=== PATIENT | male | born 1965 | race Two or more races ===

== ENCOUNTER 2021-12-15 17:03 | Emergency (ER) | payer OTHER ==
[~2021-12-15] VITALS: Ht 162.6 cm; Wt 67.6 kg
[2021-12-15 17:04] VITALS: BP 155/83
== END 2021-12-15 22:03 | disposition left against medical advice (07) ==
LOC: ER 17:03
DX: R35.0 Frequency of micturition (principal); Z53.21 Procedure and treatment not carried out due to patient leaving prior to being seen by health care provider

== ENCOUNTER 2021-12-16 09:40 | Emergency (ER) | payer OTHER ==
[~2021-12-16] VITALS: Ht 162.6 cm; Wt 66.7 kg
[2021-12-16 10:11] VITALS: BP 154/88
== END 2021-12-16 11:15 | disposition home or self-care (01) ==
LOC: ER 09:40
DX: R33.9 Retention of urine, unspecified (principal); Z88.1 Allergy status to other antibiotic agents
CPT/HCPCS: 51702; 81002

== ENCOUNTER 2024-08-21 08:02 | Inpatient (IN) | payer OTHER ==
[~2024-08-21] VITALS: Ht 162.6 cm; Wt 62.5 kg
--- NOTE | 2024-08-21 08:33 | ED.PDOC ---
General HPI Comments 59 year old male presents to the ED with a chief complaint of low back pain onset 2 days. Patient states he has chronic low back pain for the past year but noticed pain has worsen the past 2 days. Patient has a history of kidney stones and is concerned for possible kidney stones. He noticed a dark red hard stone in urine last night. Patient noticed low back pain worsens after sitting for long periods of time and has not readjust before walking. Denies trauma, injury, fever, shortness of breath, nausea, vomiting, diarrhea, constipation. No other symptoms or modifying factors present at this time. Chief Complaint: Flank Pain Time Seen by MD: 08:16 Primary Care Provider: DR. MENENDEZ Reviewed notes: Medications, Allergies Allergies: Coded Allergies: Erythromycin (Verified Allergy, Unknown, 12/15/21) Information Source: Patient Mode of Arrival: Ambulatory Severity: Moderate Timing: Days Duration: Since onset Prehospital treatment: None Onset: Spontaneous History of: Kidney stone Location: (R) Flank Penile discharge: None Modifying factors: None associated signs and symptoms: Flank Pain, Back Pain Past Medical History PAST MEDICAL HISTORY: Kidney Stones Surgical History: Denies all surgeries Family History Family History: Reviewed,noncontributory to illness Social History Smoker: Non-Smoker Alcohol: Occasionally Drugs: Denies Drug Use Lives In: Home Constitutional: denies: chills, diaphoresis, fatigue, fever, malaise, sweats, weakness, others EENTM: denies: blurred vision, double vision, ear bleeding, ear discharge, ear drainage, ear pain, ear ringing, eye pain, eye redness, hearing loss, mouth pain, mouth swelling, nasal discharge, nose bleeding, nose congestion, nose pain, photophobia, tearing, throat pain, throat swelling, voice changes, others Respiratory: denies: cough, hemoptysis, orthopnea, SOB at rest, shortness of breath, SOB with excertion, stridor, wheezing, others Cardiovascular: denies: chest pain, dizzy spells, diaphoresis, Dyspnea on exertion, edema, irregular heart beat, left arm pain, lightheadedness, palpitations, PND, syncope, others Gastrointestinal: denies: abdomen distended, abdominal pain, blood streaked bowels, constipated, diarrhea, dysphagia, difficulty swallowing, hematemesis, melena, nausea, poor appetite, poor fluid intake, rectal bleeding, rectal pain, vomiting, others Genitourinary: reports: flank pain; denies: burning, dysuria, frequency, hematuria, incontinence, penile discharge, penile sore, pain, testicle pain, testicle swelling, urgency, others Neurological: denies: dizziness, fainting, headache, left sided numbness, left sided weakness, numbness, paresthesia, pre-existing deficit, right sided n umbness, right sided weakness, seizure, speech problems, tingling, tremors, weakness, others Musculoskeletal: reports: back pain; denies: gout, joint pain, joint swelling, muscle pain, muscle stiffness, neck pain, others Integumetry: denies: bruises, change in color, change in hair/nails, dryness, laceration, lesions, lumps, rash, wounds, others Allergic/Immunocompromised: denies: Difficulty Healing, Frequent Infections, Hives, Itching, others Hematologic/Lymphatic: denies: anemia, blood clots, easy bleeding, easy bruising, swollen glands, others Endocrine: denies: excessive hunger, excessive sweating, excessive thirst, excessive urination, flushing, intolerance to cold, intolerance to heat, unexplained weight gain, unexplained weight loss, others Psychiatric: denies: anxiety, bipolar disorder, depression, hopeless, panic disorder, schizophrenia, sleepless, suicidal, others All Other Systems: Reviewed and Negative Physical Exam General Appearance: No Apparent Distress, Normal HEENT: Normal ENT Inspection, Pharynx Normal, TMs Normal Neck: Full Range of Motion, Non-Tender, Normal, Normal Inspection Respiratory: Chest Non-Tender, Lungs Clear, No Accessory Muscle Use, No Respiratory Distress, Normal Breath Sounds Cardiovascular: No Edema, No JVD, No Murmur, No Gallop, Normal Peripheral Pulses, Regular Rate/Rhythm Breast Exam: Deferred Gastrointestinal: No Organomegaly, Non Tender, No Pulsatile Mass, Normal Bowel Sounds, Soft Genitalia: Deferred Pelvic: Deferred Rectal: Deferred Extremities: No calf tenderness, Normal capillary refill, Normal inspection, Normal range of motion, Non-tender, No pedal edema Musculoskeletal : Location: Bilateral (paraspinal muscle spasms ) Apperance: Normal Neurologic: Alert, store standards associate II-XII nml as Tested, No Motor Deficits, Normal Affect, Normal Mood, No Sensory Deficits, Speech Problem (stutter ) Cerebellar Function: Normal Reflexes: Normal Skin: Dry, Normal Color, Warm Lymphatic: No Adenopathy Was a procedure done? Was a procedure done?: No Differential Diagnosis Kidney stone (Female): Pancreatitis, Pyelonephritis, Renal failure, Strain, Urinary obstruction, Urolithiasis Urinary Problem (Male): Bladder Outlet, Bladder Obstruction, Epididymitis, Prostatitis, Renal Failure, Urinary Retention, UTI X-Ray, Labs, Meds, VS Vital Signs Date Time Temp Pulse Resp B/P (MAP) Pulse Ox O2 Delivery O2 Flow Rate FiO2 08/21/24 09:42 69 16 98 Room Air* 0 21 08/21/24 09:42 97.7 69 16 156/85 (108) 98 97.7 08/21/24 08:13 98.0 88 20 142/89 (106) 98 Lab Test 08/21/24 09:48 08/21/24 08:43 08/21/24 08:00 Range/Units Troponin I High Sensitivity 3 L 3 L </=54 ng/L White Blood Count 7.4 4.4-10.8 10^3/uL Red Blood Count 4.26 L 4.5-5.90 10^6/uL Hemoglobin 12.5 L 13.5-17.5 g/dL Hematocrit 36.9 L 41.0-53.0 % Mean Corpuscular Volume 86.5 80.0-100.0 fL Mean Corpuscular Hemoglobin 29.4 28.0-32.0 pg Mean Corpuscular Hemoglobin Concent 34.0 32.0-36.0 g/dL Red Cell Distribution Width 13.6 11.8-14.3 % Platelet Count 248 140-450 10^3/uL Mean Platelet Volume 7.7 6.9-10.8 fL Neutrophils (%) (Auto) 74.7 37.0-80.0 % Lymphocytes (%) (Auto) 18.6 10.0-50.0 % Monocytes (%) (Auto) 4.5 0.0-12.0 % Eosinophils (%) (Auto) 1.8 0.0-7.0 % Basophils (%) (Auto) 0.4 0.0-2.0 % Neutrophils # (Auto) 5.5 1.6-8.6 10 ^3/uL Lymphocytes # (Auto) 1.4 0.4-5.4 10 ^3/uL Monocytes # (Auto) 0.3 0-1.3 10 ^3/uL Eosinophils # (Auto) 0.1 0-0.8 10 ^3/uL Basophils # (Auto) 0 0-0.2 10 ^3/uL Nucleated Red Blood Cells 0.0 % Prothrombin Time 10.7 9.3-11.8 sec Prothrombin Time INR 1.01 0.9-1.15 Activated Partial Thromboplast Time 28.5 24.5-34.5 SEC Sodium Level 137 136-145 mmol/L Potassium Level 4.3 3.5-5.1 mmol/L Chloride Level 104 98-107 mmol/L Carbon Dioxide Level 26 20-31 mmol/L Anion Gap 7 5-15 Blood Urea Nitrogen 27 H 9-23 mg/dL Creatinine 2.25 H 0.700-1.30 mg/dL Glomerular Filtration Rate Calc 32 >90 mL/min BUN/Creatinine Ratio 12.0 10.0-20.0 Serum Glucose 105 74-106 mg/dL Lactic Acid Level 0.9 0.4-2.0 mmol/L Calcium Level 10.1 8.7-10.4 mg/dL Magnesium Level 2.0 1.6-2.6 mg/dL Total Bilirubin 0.8 0.2-1.0 mg/dL Aspartate Amino Transferase (AST) 11 L 13-40 U/L Alanine Aminotransferase (ALT) 10 7-40 U/L Alkaline Phosphatase 56 46-116 U/L Total Protein 7.7 5.7-8.2 g/dL Albumin 4.3 3.2-4.8 g/dL Lipase 43 12-53 U/L Plasma/Serum Blood Alcohol < 3.0 <10 mg/dL Urine Color Colorless Yellow Urine Clarity Turbid H Clear Urine pH 6.5 5.0-9.0 Urine Specific [place] 1.008 1.001-1.035 Urine Protein Trace H Negative Urine Ketones Negative Negative Urine Blood 2+ H Negative /uL Urine Nitrite 2+ H Negative Urine Bilirubin Negative Negative Urine Urobilinogen Normal Negative mg/dL Urine Leukocyte Esterase 3+ Negative /uL Urine RBC 4 0 - 3 /hpf Urine Microscopic WBC 182 H 0-3 /HPF Urine Squamous Epithelial Cells Few <5 /hpf Urine Bacteria None seen None Seen /hpf Urine Glucose Normal Normal mg/dL Urine Opiates Screen Pending Urine Fentanyl Screen Pending Urine Barbiturates Screen Pending Urine Phencyclidine Screen Pending Urine Amphetamines Screen Pending Urine Benzodiazepines Screen Pending Urine Cocaine Screen Pending Urine Cannabinoids Screen Pending Current Medications Medications (Trade) Dose Ordered Sig/Praveena Route Start Time Stop Time Status Last Admin Tamsulosin HCl (Flomax) 0.4 mg ONCE ONCE PO 08/21/24 09:30 08/21/24 09:33 DC 08/21/24 09:44 [place] [id number] Ph: [phone] DIAGNOSTIC IMAGING Diagnostic Imaging Report : [id number] Signed PATIENT: JACKI ROCA ACCT: [id number] UNIT: [id number] : 1965 LOC: ER ROOM / BED: / AGE / SEX: 59 / M ADM STATUS: REG ER SERVICE 4 ORDERING PHYSICIAN: LALA JEFF MD PROCEDURE(s): ABPL - CT AB PEL WO CON-NO ORAL OR IV REASON: right flank pain ORDER NUMBER(s): [id number], ACCESSION NUMBER(s): [id number] CLINICAL INFORMATION: 59 years old, Male; right flank pain. TECHNIQUE: Axial CT images of the abdomen and pelvis were obtained without IV contrast. Coronal and sagittal reformatted images were obtained, reviewed, and stored. Evaluation of the parenchymal organs is limited without IV contrast. Evaluation of the bowel and mesentery is limited without oral contrast. All CT scans at this medical facility are performed using dose modulation techniques as appropriate to a performed exam including the following: Automated exposure control was utilized; adjustment of the MA and/or KV according to patient size; and use of iterative reconstruction technique. CTDIvol = 5.76 mGy DLP = 250.06 mGy-cm COMPARISON: None FINDINGS: Lung bases: Lung bases are clear. Liver: Grossly unremarkable in its noncontrast enhanced appearance. No abnormal density or focal lesion identified. Biliary: No calcified gallstones or biliary ductal dilatation. Spleen: Unremarkable. Pancreas: Grossly unremarkable in its noncontrast enhanced appearance. Adrenal glands: Unremarkable. No mass. Kidneys and bladder: Severe bilateral hydronephrosis. No obstructing calculi are visualized. There is mild bilateral perinephric stranding. There is moderate to marked circumferential thickening of the bladder wall moderate distention of the bladder. Aorta/Vascular: Scattered atherosclerotic calcification. No abdominal aortic aneurysm. Retroperitoneum: No mass or lymphadenopathy. Bowel/mesentery: No small bowel obstruction. No free air or free fluid. Appendix is visualized and appears unremarkable. Moderate stool throughout the colon. Scattered small colonic diverticula without adjacent inflammatory changes visualized to suggest diverticulitis. Pelvic organs: Prostate is enlarged, with impression on the bladder base. Abdominal wall: There are small bilateral fat containing indirect inguinal hernias. Bones: No acute fracture or suspicious intraosseous lesion. IMPRESSION: 1. Severe bilateral hydronephrosis and hydroureter with moderately distended bladder. Findings are suspicious for bladder outlet obstruction due to the enlarged prostate. 2. Moderate to marked bladder wall thickening is nonspecific. May be partly due to bladder outlet obstruction from the enlarged prostate. Correlate clinically for cystitis. Malignancy can not be excluded in the appropriate clinical setting. 3. Moderate stool throughout the colon and scattered colonic diverticula without adjacent inflammatory changes to suggest diverticulitis. 4. Additional findings as described above. ATED BY: JOE BRIAN DO DICTATED DATE/TIME: 08/21/24852 SIGNED BY: JOE BRIAN DO SIGNED DATE/TIME: 08/21/24852 CC: X-Ray, Labs, Meds, VS Comment This 59-year-old male presents secondary to her when he was seen by her back pain is worse in the last 2 days. He states certain positions make it better sitting positions makes the discomfort worse. His workup he was significant for what appears to be bladder outlet obstruction with bilateral hydronephrosis secondary to enlarged prostate. He will also, the patient noted to have nitrite positive urine. I am concerned the patient may have either pyelonephritis or acute prostatitis. He was given levofloxacin. Secondary to the severe nature of his symptoms, he will be admitted for further workup and management. Time of 1ST Reevaluation: 08:46 Reevaluation 1ST: Unchanged Patient Education/Counseling: Diagnosis, Treatment, Prognosis Family Education/Counseling: No Family Present Departure 1 Departure Time of Disposition: 10:58 Impression: Primary Impression: BPH (benign prostatic hyperplasia) Additional Impressions: Pyelonephritis UTI (urinary tract infection) Renal failure (ARF), acute on chronic Disposition: 09 ADMITTED INPATIENT Admit to: Med Surg Condition: Fair Critical Care Note Critical Care Time?: No Stability Stability form required: No I personally scribed for LALA JEFF MD ([email or web address]) on 08/21/24 at 08:33. Electronically submitted by Marybel Correia ([email or web address]). I personally scribed for LALA JEFF MD ([email or web address]) on 08/21/24 at 09:12. Electronically submitted by Marybel Correia ([email or web address]). LALA JEFF MD Aug 21, 2024 08:33
[2024-08-21 08:55] LABS: Urine Bacteria None Seen /hpf (None Seen)
--- NOTE | 2024-08-21 08:55 | DVH ---
CLINICAL INFORMATION: 59 years old, Male; right flank pain. TECHNIQUE: Axial CT images of the abdomen and pelvis were obtained without IV contrast. Coronal and sagittal reformatted images were obtained, reviewed, and stored. Evaluation of the parenchymal organs is limited without IV contrast. Evaluation of the bowel and mesentery is limited without oral contra st. All CT scans at this medical facility are performed using dose modulation techniques as appropria te to a performed exam including the following: Automated exposure control was utilized; adjustment o f the MA and/or KV according to patient size; and use of iterative reconstruction technique. CTDIvol = 5.76 mGy DLP = 250.06 mGy-cm COMPARISON: None FINDINGS: Lung bases: Lung bases are clear. Liver: Grossly unremarkable in its noncontrast enhanced appearance. No abnormal density or focal les ion identified. Biliary: No calcified gallstones or biliary ductal dilatation. Spleen: Unremarkable. Pancreas: Grossly unremarkable in its noncontrast enhanced appearance. Adrenal glands: Unremarkable. No mass. Kidneys and bladder: Severe bilateral hydronephrosis. No obstructing calculi are visualized. There is mild bilateral perinephric stranding. There is moderate to marked circumferential thickening of the bladder wall moderate distention of the bladder. Aorta/Vascular: Scattered atherosclerotic calcification. No abdominal aortic aneurysm. Retroperitoneum: No mass or lymphadenopathy. Bowel/mesentery: No small bowel obstruction. No free air or free fluid. Appendix is visualized and ap pears unremarkable. Moderate stool throughout the colon. Scattered small colonic diverticula without adjacent inflammatory changes visualized to suggest diverticulitis. Pelvic organs: Prostate is enlarged, with impression on the bladder base. Abdominal wall: There are small bilateral fat containing indirect inguinal hernias. Bones: No acute fracture or suspicious intraosseous lesion. IMPRESSION: 1. Severe bilateral hydronephrosis and hydroureter with moderately distended bladder. Findings are somers spicious for bladder outlet obstruction due to the enlarged prostate. 2. Moderate to marked bladder wall thickening is nonspecific. May be partly due to bladder outlet obs truction from the enlarged prostate. Correlate clinically for cystitis. Malignancy can not be exclud ed in the appropriate clinical setting. 3. Moderate stool throughout the colon and scattered colonic diverticula without adjacent inflammator y changes to suggest diverticulitis. 4. Additional findings as described above.
[2024-08-21 09:10] LABS: Basophils # (auto) 0 10 ^3/uL (0-0.2); Basophils % (auto) 0.4 % (0.0-2.0); Eosinophils # (auto) 0.1 10 ^3/uL (0-0.8); Eosinophils % (auto) 1.8 % (0.0-7.0); Hematocrit 36.9 % (41.0-53.0); Hemoglobin 12.5 g/dL (13.5-17.5); Lymphocytes # (auto) 1.4 10 ^3/uL (0.4-5.4); Lymphocytes % (auto) 18.6 % (10.0-50.0); Mean Corpuscular Hemoglobin 29.4 pg (28.0-32.0); Mean Corpuscular Volume 86.5 fL (80.0-100.0); Monocytes # (auto) 0.3 10 ^3/uL (0-1.3); Monocytes % (auto) 4.5 % (0.0-12.0); Neutrophils # (auto) 5.5 10 ^3/uL (1.6-8.6); Neutrophils % (auto) 74.7 % (37.0-80.0); Platelet Count (auto) 248 10^3/uL (140-450); Red Blood Cells 4.26 10^6/uL (4.5-5.90); Red Cell Distribution Width 13.6 % (11.8-14.3); White Blood Cell 7.4 10^3/uL (4.4-10.8)
[2024-08-21 09:24] LABS: Alanine Aminotransferase 10 U/L (7-40); Albumin 4.3 g/dL (3.2-4.8); Alkaline Phosphatase 56 U/L (46-116); Anion Gap 7 (5-15); Bilirubin, Total 0.8 mg/dL (0.2-1.0); Calcium 10.1 mg/dL (8.7-10.4); Carbon Dioxide 26 mmol/L (20-31); Chloride 104 mmol/L (98-107); Glucose 105 mg/dL (74-106); Lipase 43 U/L (12-53); Potassium 4.3 mmol/L (3.5-5.1); Sodium 137 mmol/L (136-145); Total Protein 7.7 g/dL (5.7-8.2)
[2024-08-21 09:25] LABS: INR 1.01 (0.9-1.15); Partial Thromboplastin Time 28.5 SEC (24.5-34.5); Prothrombin Time 10.7 sec (9.3-11.8)
[2024-08-21 09:27] LABS: Urine Blood 2+ /uL (Negative); Urine Clarity Turbid (Clear); Urine Color Colorless (Yellow); Urine Protein, UAD TRACE (Negative); Urine Specific Gravity 1.008 (1.001-1.035); Urine Squamous Epithelial Cell FEW /hpf (<5); Urine Urobilinogen Normal (Negative); Urine WBC 182 /HPF (0-3); Urine pH 6.5 (5.0-9.0)
[2024-08-21 09:29] LABS: Aspartate Aminotransferase 11 U/L (13-40); Blood Urea Nitrogen 27 mg/dL (9-23)
[2024-08-21 09:42] VITALS: PULSE 69; RESP 16; O2SAT 98
[2024-08-21] MEDS: TAMSULOSIN HYDROCHLORIDE 0.4 MG CAP PO ONE (09:44)
[2024-08-21 09:52] LABS: Blood Alcohol < 3.0 mg/dL (<10)
[2024-08-21] MEDS ORDERED: levoFLOXacin 750MG 150 ML IV ONE (11:00)
[2024-08-21 11:10] LABS: Amphetamine Screen, Urine Neg (NEGATIVE); Barbiturate Scree,Urine Neg (NEGATIVE); Benzodiazephine Screen, Urine Neg (NEGATIVE); Cannabinoid Screen, Urine Neg (NEGATIVE); Cocaine Screen, Urine Neg (NEGATIVE); Opiate Scree,Urine Neg (NEGATIVE); Phencyclidine Screen, Urine Neg (NEGATIVE)
[2024-08-21] MEDS: PIPERACILLIN-TAZOB 3.375GM 100 ML IV ONE (13:49)
[2024-08-21] MEDS ORDERED: ONDANSETRON HCL 4 MG/2 ML VIAL IV PRN (14:30)
[2024-08-21] MEDS ORDERED: HYDROmorphone HCL 2 MG/ML VL/or syr IV PRN (14:30)
[2024-08-21] MEDS ORDERED: HYDROcodone-ACET 5/325MG TAB PO PRN (14:30)
[2024-08-21] MEDS ORDERED: ACETAMINOPHEN 325 MG TAB PO PRN (14:30)
--- NOTE | 2024-08-21 14:31 | DVHHP2 ---
Admitting Diagnosis: flank pain History of Present Illness 59 year old male presents to the ED with a chief complaint of low back pain onset 2 days. Patient states he has chronic low back pain for the past year but noticed pain has worsen the past 2 days. Patient has a history of kidney stones and is concerned for possible kidney stones. He noticed a dark red hard stone in urine last night. Patient noticed low back pain worsens after sitting for long periods of time and has not readjust before walking. Denies trauma, injury, fever, shortness of breath, nausea, vomiting, diarrhea, constipation. No other symptoms or modifying factors present at this time. PAST MEDICAL HISTORY: Kidney Stones Surgical History: Denies all surgeries Family History Family History: Reviewed,noncontributory to illness Social History Smoker: Non-Smoker Alcohol: Occasionally Drugs: Denies Drug Use Lives In: Home Allergies: Coded Allergies: Erythromycin (Verified Allergy, Unknown, 12/15/21) Current Medications Current Medications Medications (Trade) Dose Ordered Sig/Praveena Route PRN Reason Start Time Stop Time Status Last Admin Ceftriaxone Sodium 50 ml @ 100 mls/hr DAILY IV 08/22/24 10:00 UNV Sodium Chloride (Saline Lock Ns) 10 ml Q8HR IV 08/21/24 22:00 UNV Acetaminophen (Tylenol Tablet) 650 mg Q6HP PRN PO PAIN SCALE 1-3 OR TEMP>100.4 08/21/24 14:30 UNV Acetaminophen/ Hydrocodone Bitart ([place] 5/325MG Tab) 1 tab Q4HP PRN PO MODERATE PAIN (4-6 PAIN SCALE) 08/21/24 14:30 UNV Hydromorphone HCl (Dilaudid Injection) 0.5 mg Q4HP PRN IV SEVERE PAIN (7-10 PAIN SCALE) 08/21/24 14:30 UNV Ondansetron HCl (Zofran) 4 mg Q4HP PRN IV NAUSEA / VOMITING 08/21/24 14:30 UNV Vital Signs Vital Signs Date Time Temp Pulse Resp B/P (MAP) Pulse Ox O2 Delivery O2 Flow Rate FiO2 08/21/24 09:42 69 16 98 Room Air* 0 21 08/21/24 09:42 97.7 156/85 (108) 97.7 Physical Exam 59 years old male, well nourished well developed. No apparent distress HEENT-atraumatic normocephalic Heart-regular rate and rhythm Lungs clear to auscultate bilaterally. Abdomen soft nontender nondistended Musculoskeletal-for edema, no cyanosis. Negative CVA tenderness Neuro-AO x3, no focal deficits Results Labs Test 08/21/24 09:48 08/21/24 08:43 08/21/24 08:00 Range/Units Troponin I High Sensitivity 3 L </=54 ng/L White Blood Count 7.4 4.4-10.8 10^3/uL Red Blood Count 4.26 L 4.5-5.90 10^6/uL Hemoglobin 12.5 L 13.5-17.5 g/dL Hematocrit 36.9 L 41.0-53.0 % Mean Corpuscular Volume 86.5 80.0-100.0 fL Mean Corpuscular Hemoglobin 29.4 28.0-32.0 pg Mean Corpuscular Hemoglobin Concent 34.0 32.0-36.0 g/dL Red Cell Distribution Width 13.6 11.8-14.3 % Platelet Count 248 140-450 10^3/uL Mean Platelet Volume 7.7 6.9-10.8 fL Neutrophils (%) (Auto) 74.7 37.0-80.0 % Lymphocytes (%) (Auto) 18.6 10.0-50.0 % Monocytes (%) (Auto) 4.5 0.0-12.0 % Eosinophils (%) (Auto) 1.8 0.0-7.0 % Basophils (%) (Auto) 0.4 0.0-2.0 % Neutrophils # (Auto) 5.5 1.6-8.6 10 ^3/uL Lymphocytes # (Auto) 1.4 0.4-5.4 10 ^3/uL Monocytes # (Auto) 0.3 0-1.3 10 ^3/uL Eosinophils # (Auto) 0.1 0-0.8 10 ^3/uL Basophils # (Auto) 0 0-0.2 10 ^3/uL Nucleated Red Blood Cells 0.0 % Prothrombin Time 10.7 9.3-11.8 sec Prothrombin Time INR 1.01 0.9-1.15 Activated Partial Thromboplast Time 28.5 24.5-34.5 SEC Sodium Level 137 136-145 mmol/L Potassium Level 4.3 3.5-5.1 mmol/L Chloride Level 104 98-107 mmol/L Carbon Dioxide Level 26 20-31 mmol/L Anion Gap 7 5-15 Blood Urea Nitrogen 27 H 9-23 mg/dL Creatinine 2.25 H 0.700-1.30 mg/dL Glomerular Filtration Rate Calc 32 >90 mL/min BUN/Creatinine Ratio 12.0 10.0-20.0 Serum Glucose 105 74-106 mg/dL Lactic Acid Level 0.9 0.4-2.0 mmol/L Calcium Level 10.1 8.7-10.4 mg/dL Magnesium Level 2.0 1.6-2.6 mg/dL Total Bilirubin 0.8 0.2-1.0 mg/dL Aspartate Amino Transferase (AST) 11 L 13-40 U/L Alanine Aminotransferase (ALT) 10 7-40 U/L Alkaline Phosphatase 56 46-116 U/L Total Protein 7.7 5.7-8.2 g/dL Albumin 4.3 3.2-4.8 g/dL Lipase 43 12-53 U/L Plasma/Serum Blood Alcohol < 3.0 <10 mg/dL Urine Color Colorless Yellow Urine Clarity Turbid H Clear Urine pH 6.5 5.0-9.0 Urine Specific [place] 1.008 1.001-1.035 Urine Protein Trace H Negative Urine Ketones Negative Negative Urine Blood 2+ H Negative /uL Urine Nitrite 2+ H Negative Urine Bilirubin Negative Negative Urine Urobilinogen Normal Negative mg/dL Urine Leukocyte Esterase 3+ Negative /uL Urine RBC 4 0 - 3 /hpf Urine Microscopic WBC 182 H 0-3 /HPF Urine Squamous Epithelial Cells Few <5 /hpf Urine Bacteria None seen None Seen /hpf Urine Glucose Normal Normal mg/dL Urine Opiates Screen Neg NEGATIVE Urine Fentanyl Screen Neg NEGATIVE Urine Barbiturates Screen Neg NEGATIVE Urine Phencyclidine Screen Neg NEGATIVE Urine Amphetamines Screen Neg NEGATIVE Urine Benzodiazepines Screen Neg NEGATIVE Urine Cocaine Screen Neg NEGATIVE Urine Cannabinoids Screen Neg NEGATIVE Primary Diagnosis Cystitis MAKSIM on CKD Bilateral hydronephrosis due to bladder outlet obstruction likely due to BPH Plan Abdominal pelvis shows bilateral hydronephrosis and distended bladder likely due to BPH + UA Ceftriaxone 1g daily. f/u with bcx Tamsulosin Insert [place]den negative cva tendernss. suspect possible stone or passed stone. IV fluids when 150 LR for possible kidney stone Urology consult for acute urinary retention Nephrology consult for MAKSIM on CKD Check urine sodium, urine creatinine Monitoring urine output full code renal diet. npo midnight for possible procedure ppi SCD Plan discussed with: Patient Problems List: (1) Acute cystitis (2) UTI (urinary tract infection) Status: Acute (3) BPH (benign prostatic hyperplasia) Status: Acute Date of Service: Aug 21, 2024 Billing Provider: JACKI CARLOS MD Common Visit Codes: [id number] INP/OBS CARE (HIGH) JACKI CARLOS MD Aug 21, 2024 14:31
[2024-08-21] MEDS: LACTATED RINGER'S 1,000 ML IV ONE (15:28)
--- NOTE | 2024-08-21 18:50 | DVHINCON2 ---
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 Patient denies any other notable medical conditions. Patient presents to the hospital because over the last several days he reports that he has had flank and side pain and abdominal pain after drinking cranberry juice and lemon. He reports that his urinary output has been decreased over the last few days. Upon evaluation in the hospital he was noted to have bilateral hydronephrosis a Hayden catheter was placed. He states that his baseline GFR is in the mid 30s Allergies: Coded Allergies: Erythromycin (Verified Allergy, Unknown, 12/15/21) Current Medications Current Medications Medications (Trade) Dose Ordered Sig/Praveena Route PRN Reason Start Time Stop Time Status Last Admin Ceftriaxone Sodium 50 ml @ 100 mls/hr DAILY IV 08/22/24 10:00 Sodium Chloride (Saline Lock Ns) 10 ml Q8HR IV 08/21/24 22:00 Acetaminophen (Tylenol Tablet) 650 mg Q6HP PRN PO PAIN SCALE 1-3 OR TEMP>100.4 08/21/24 14:30 Acetaminophen/ Hydrocodone Bitart ([place] 5/325MG Tab) 1 tab Q4HP PRN PO MODERATE PAIN (4-6 PAIN SCALE) 08/21/24 14:30 Hydromorphone HCl (Dilaudid Injection) 0.5 mg Q4HP PRN IV SEVERE PAIN (7-10 PAIN SCALE) 08/21/24 14:30 Ondansetron HCl (Zofran) 4 mg Q4HP PRN IV NAUSEA / VOMITING 08/21/24 14:30 Tamsulosin HCl (Flomax) 0.4 mg DAILY PO 08/22/24 10:00 Review of Systems Abdominal pain H&P Exam Vital Signs/I&O Vital Sign Date Time Temp Pulse Resp B/P (MAP) Pulse Ox O2 Delivery O2 Flow Rate FiO2 08/21/24 17:16 72 10 116/75 (89) 96 08/21/24 09:42 Room Air* 0 21 08/21/24 09:42 97.7 97.7 Physical Exam Middle-aged white male thin-appearing Nonacute distress Abdomen is soft No pitting edema Hayden catheter Regular rate and rhythm Labs/Diagnostic Data Labs/Diagnostic Data Laboratory Tests Test 08/21/24 09:48 08/21/24 08:43 08/21/24 08:00 Range/Units Troponin I High Sensitivity 3 L 3 L </=54 ng/L White Blood Count 7.4 4.4-10.8 10^3/uL Red Blood Count 4.26 L 4.5-5.90 10^6/uL Hemoglobin 12.5 L 13.5-17.5 g/dL Hematocrit 36.9 L 41.0-53.0 % Mean Corpuscular Volume 86.5 80.0-100.0 fL Mean Corpuscular Hemoglobin 29.4 28.0-32.0 pg Mean Corpuscular Hemoglobin Concent 34.0 32.0-36.0 g/dL Red Cell Distribution Width 13.6 11.8-14.3 % Platelet Count 248 140-450 10^3/uL Mean Platelet Volume 7.7 6.9-10.8 fL Neutrophils (%) (Auto) 74.7 37.0-80.0 % Lymphocytes (%) (Auto) 18.6 10.0-50.0 % Monocytes (%) (Auto) 4.5 0.0-12.0 % Eosinophils (%) (Auto) 1.8 0.0-7.0 % Basophils (%) (Auto) 0.4 0.0-2.0 % Neutrophils # (Auto) 5.5 1.6-8.6 10 ^3/uL Lymphocytes # (Auto) 1.4 0.4-5.4 10 ^3/uL Monocytes # (Auto) 0.3 0-1.3 10 ^3/uL Eosinophils # (Auto) 0.1 0-0.8 10 ^3/uL Basophils # (Auto) 0 0-0.2 10 ^3/uL Nucleated Red Blood Cells 0.0 % Prothrombin Time 10.7 9.3-11.8 sec Prothrombin Time INR 1.01 0.9-1.15 Activated Partial Thromboplast Time 28.5 24.5-34.5 SEC Sodium Level 137 136-145 mmol/L Potassium Level 4.3 3.5-5.1 mmol/L Chloride Level 104 98-107 mmol/L Carbon Dioxide Level 26 20-31 mmol/L Anion Gap 7 5-15 Blood Urea Nitrogen 27 H 9-23 mg/dL Creatinine 2.25 H 0.700-1.30 mg/dL Glomerular Filtration Rate Calc 32 >90 mL/min BUN/Creatinine Ratio 12.0 10.0-20.0 Serum Glucose 105 74-106 mg/dL Lactic Acid Level 0.9 0.4-2.0 mmol/L Calcium Level 10.1 8.7-10.4 mg/dL Magnesium Level 2.0 1.6-2.6 mg/dL Total Bilirubin 0.8 0.2-1.0 mg/dL Aspartate Amino Transferase (AST) 11 L 13-40 U/L Alanine Aminotransferase (ALT) 10 7-40 U/L Alkaline Phosphatase 56 46-116 U/L Total Protein 7.7 5.7-8.2 g/dL Albumin 4.3 3.2-4.8 g/dL Lipase 43 12-53 U/L Plasma/Serum Blood Alcohol < 3.0 <10 mg/dL Urine Color Colorless Yellow Urine Clarity Turbid H Clear Urine pH 6.5 5.0-9.0 Urine Specific [place] 1.008 1.001-1.035 Urine Protein Trace H Negative Urine Ketones Negative Negative Urine Blood 2+ H Negative /uL Urine Nitrite 2+ H Negative Urine Bilirubin Negative Negative Urine Urobilinogen Normal Negative mg/dL Urine Leukocyte Esterase 3+ Negative /uL Urine RBC 4 0 - 3 /hpf Urine Microscopic WBC 182 H 0-3 /HPF Urine Squamous Epithelial Cells Few <5 /hpf Urine Bacteria None seen None Seen /hpf Urine Glucose Normal Normal mg/dL Urine Opiates Screen Neg NEGATIVE Urine Fentanyl Screen Neg NEGATIVE Urine Barbiturates Screen Neg NEGATIVE Urine Phencyclidine Screen Neg NEGATIVE Urine Amphetamines Screen Neg NEGATIVE Urine Benzodiazepines Screen Neg NEGATIVE Urine Cocaine Screen Neg NEGATIVE Urine Cannabinoids Screen Neg NEGATIVE Assessment Acute kidney injury likely in the setting of urinary tract infection with superimposed urinary obstruction Chronic kidney disease stage 3 Urinary tract infection Agree with Hayden catheter placement Strict Is&Os Patient is self caths at home upon discharge patient can remove Hayden. Patient should follow-up with [place]. IV antibiotics recommend coverage for nitrite positive bacteria Obtain urinary culture Plan discussed with: Patient CLAUDETTE JOHNSON MD Aug 21, 2024 18:50
[2024-08-21] MEDS: LACTATED RINGER'S 1,000 ML IV SCH (19:30)
[2024-08-21] MEDS: SODIUM CHLOR 0.9% PF (SALINE LOCK) 10ML VIAL/SYR IV SCH (22:00)
[2024-08-22] VITALS (8 sets, daily range): BP systolic 110–131; BP diastolic 71–87; PULSE 63–91; RESP 16–20; TEMP 97.9–98.5; O2SAT 93–99
--- NOTE | 2024-08-22 01:11 | DVH ---
RENAL ULTRASOUND CLINICAL HISTORY: b/l hydronephrosis TECHNIQUE: Multiple grayscale ultrasound images were obtained through the kidneys and urinary bladder . COMPARISON: None FINDINGS: Right kidney: Measures 10.6 cm. Moderate hydronephrosis. Left kidney: Measures 10.7 cm. Moderate hydronephrosis. Urinary bladder: Thickened urinary bladder decompressed about a Hayden catheter. IMPRESSION: 1. Moderate bilateral hydronephrosis. 2. Marked bladder wall thickening decompressed Hepatic Hayden catheter. this could be due to chronic b ladder outlet obstruction in the setting of prostatomegaly seen on recent CT abdomen and pelvis. Cor relate with urinalysis if there is clinical concern for cystitis, if not already performed.
[2024-08-22] MEDS ORDERED: TAMS0.4C39 PO (03:15)
[2024-08-22 07:44] LABS: Basophils # (auto) 0 10 ^3/uL (0-0.2); Basophils % (auto) 0.4 % (0.0-2.0); Eosinophils # (auto) 0.1 10 ^3/uL (0-0.8); Eosinophils % (auto) 1.3 % (0.0-7.0); Hematocrit 33.4 % (41.0-53.0); Hemoglobin 11.5 g/dL (13.5-17.5); Lymphocytes # (auto) 1.4 10 ^3/uL (0.4-5.4); Lymphocytes % (auto) 20.2 % (10.0-50.0); Mean Corpuscular Hemoglobin 29.7 pg (28.0-32.0); Mean Corpuscular Hgb Conc. 34.5 g/dL (32.0-36.0); Mean Corpuscular Volume 86.2 fL (80.0-100.0); Monocytes # (auto) 0.4 10 ^3/uL (0-1.3); Monocytes % (auto) 5.4 % (0.0-12.0); Neutrophils % (auto) 72.7 % (37.0-80.0); Platelet Count (auto) 251 10^3/uL (140-450); Red Blood Cells 3.88 10^6/uL (4.5-5.90); Red Cell Distribution Width 13.4 % (11.8-14.3); White Blood Cell 6.8 10^3/uL (4.4-10.8)
[2024-08-22 08:09] LABS: Alkaline Phosphatase 52 U/L (46-116); Anion Gap 7 (5-15); Calcium 9.7 mg/dL (8.7-10.4); Carbon Dioxide 26 mmol/L (20-31); Chloride 105 mmol/L (98-107); Glucose 86 mg/dL (74-106); Potassium 4.1 mmol/L (3.5-5.1); Sodium 138 mmol/L (136-145)
[2024-08-22 08:10] LABS: Total Protein 6.9 g/dL (5.7-8.2)
[2024-08-22 08:18] LABS: Alanine Aminotransferase < 9 U/L (7-40); Aspartate Aminotransferase 11 U/L (13-40); Blood Urea Nitrogen 25 mg/dL (9-23)
[2024-08-22 09:04] LABS: Hepatitis B Surface Antigen Negative (Negative); Hepatitis C Antibody Negative (Negative)
[2024-08-22] MEDS: TAMSULOSIN HYDROCHLORIDE 0.4 MG CAP PO SCH (09:21)
[2024-08-22] MEDS: cefTRIAXone 1GM/50ML D5W 50 ML IV SCH (09:22)
--- NOTE | 2024-08-22 11:55 | DVHPN2 ---
Reviewed: Care Plan, H&P, Labs, Medications, Previous Orders, Radiology Changes from previous H/P or p: No Changes Objective Vitals Vital Signs Date Time Temp Pulse Resp B/P (MAP) Pulse Ox O2 Delivery O2 Flow Rate FiO2 08/22/24 08:54 97.9 79 18 131/87 (102) 96 97.9 08/22/24 02:17 Room Air* 0 21 Intake/Output Intake and Output 08/22/24 07:00 Intake Total 725 ml Output Total 1700 ml Balance -975 ml Intake Oral 200 ml IV Total 525 ml Output Urine Total 1700 ml Medications Current Medications Medications Dose Ordered Sig/Praveena Route Start Time Stop Time Status Last Admin Dose Admin Ceftriaxone Sodium 50 ml @ 100 mls/hr DAILY IV 08/22/24 10:00 08/22/24 09:22 100 MLS/HR Sodium Chloride 10 ml Q8HR IV 08/21/24 22:00 08/22/24 06:00 10 ML Acetaminophen 650 mg Q6HP PRN PO 08/21/24 14:30 Acetaminophen/ Hydrocodone Bitart 1 tab Q4HP PRN PO 08/21/24 14:30 Hydromorphone HCl 0.5 mg Q4HP PRN IV 08/21/24 14:30 Ondansetron HCl 4 mg Q4HP PRN IV 08/21/24 14:30 Tamsulosin HCl 0.4 mg DAILY PO 08/22/24 10:00 08/22/24 09:21 0.4 MG Lactated Ringer's 1,000 ml @ 75 mls/hr [id number] IV 08/21/24 18:45 08/22/24 08:05 75 MLS/HR Laboratory Results Laboratory Tests 08/22/24 05:55 Chemistry Test 08/22/24 05:55 Albumin 4.0 g/dL (3.2-4.8) Calcium Level 9.7 mg/dL (8.7-10.4) Total Protein 6.9 g/dL (5.7-8.2) LFT Test 08/22/24 05:55 Alanine Aminotransferase (ALT) < 9 U/L (7-40) Alkaline Phosphatase 52 U/L (46-116) Aspartate Amino Transferase (AST) 11 U/L (13-40) L Total Bilirubin 1.0 mg/dL (0.2-1.0) Urinalysis Test 08/21/24 08:00 Urine Color Colorless (Yellow) Urine Clarity Turbid (Clear) H Urine pH 6.5 (5.0-9.0) Urine Specific [place] 1.008 (1.001-1.035) Urine Protein Trace (Negative) H Urine Ketones Negative (Negative) Urine Blood 2+ /uL (Negative) H Urine Nitrite 2+ (Negative) H Urine Bilirubin Negative (Negative) Urine Urobilinogen Normal mg/dL (Negative) Urine Leukocyte Esterase 3+ /uL (Negative) Urine RBC 4 /hpf (0 - 3) Urine Microscopic WBC 182 /HPF (0-3) H Urine Squamous Epithelial Cells Few /hpf (<5) Urine Bacteria None seen /hpf (None Seen) Urine Creatinine Pending Urine Sodium Pending Urine Glucose Normal mg/dL (Normal) Labs and/or images reviewed: Labs reviewed by me, Image(s) reviewed by me Assessment/Plan Assessment/Plan Acute obstructive uropathy: Hayden consult for Urology Dr. Waite Bilateral hydroureteronephrosis secondary to enlarged prostate Enlarged prostate Sepsis secondary to urinary tract infection: Blood cultures urine cultures Rocephin MAKSIM: Consult by Dr Ayala appreciated CKD 3 Patient is thinking of leaving AMA Plan discussed with: Patient My Orders Orders - JUSTINO RAMIREZ MD Procedure Category Date Status Time Communication Order ORDERS 08/22/24 Transmitted 11:46 Date of Service: Aug 22, 2024 Billing Provider: JUSTINO RAMIREZ MD Common Visit Codes: [id number] INP/OBS CARE(HIGH) JUSTINO RAMIREZ MD Aug 22, 2024 11:55
--- NOTE | 2024-08-22 11:57 | DVHPN2 ---
Progress Note Date Seen: Aug 22, 2024 Medical Necessity Reason Pt with a Central, PICC or Fol: Yes The following are medically ne: Garcia Catheter Reason for garcia catheter: Bladder Retention/Obstruc Subjective Patient reports: Feels better Objective vital signs Vital Sign Date Time Temp Pulse Resp B/P (MAP) Pulse Ox O2 Delivery O2 Flow Rate FiO2 08/22/24 08:54 97.9 79 18 131/87 (102) 96 97.9 08/22/24 02:17 Room Air* 0 21 Total Intake and Output 08/21/24 08/21/24 08/22/24 15:00 23:00 07:00 Intake Total 225 ml 500 ml Output Total 950 ml 750 ml Balance -725 ml -250 ml medications Current Medications Medications Dose Ordered Sig/Praveena Route Start Time Stop Time Status Last Admin Dose Admin Ceftriaxone Sodium 50 ml @ 100 mls/hr DAILY IV 08/22/24 10:00 08/22/24 09:22 100 MLS/HR Sodium Chloride 10 ml Q8HR IV 08/21/24 22:00 08/22/24 06:00 10 ML Acetaminophen 650 mg Q6HP PRN PO 08/21/24 14:30 Acetaminophen/ Hydrocodone Bitart 1 tab Q4HP PRN PO 08/21/24 14:30 Hydromorphone HCl 0.5 mg Q4HP PRN IV 08/21/24 14:30 Ondansetron HCl 4 mg Q4HP PRN IV 08/21/24 14:30 Tamsulosin HCl 0.4 mg DAILY PO 08/22/24 10:00 08/22/24 09:21 0.4 MG Lactated Ringer's 1,000 ml @ 75 mls/hr [id number] IV 08/21/24 18:45 08/22/24 08:05 75 MLS/HR Examination: GENERAL:Normal, CVS:Normal, :Abnormal laboratory and microbiology Laboratory Tests 08/22/24 05:55 Test 08/22/24 05:55 Range/Units Serum Glucose 86 74-106 mg/dL Problem List/Assessment/Plan Problem List/Assessment/Plan Acute kidney injury likely in the setting of urinary tract infection with superimposed urinary obstruction Chronic kidney disease stage 3 Urinary tract infection continue IVF given renal function has not improved Agree with Garcia catheter placement Strict Is&Os Patient is self caths at home upon discharge patient can remove Garcia. Patient should follow-up with his urologist down the [place]. IV antibiotics recommend coverage for nitrite positive bacteria Obtain urinary culture Plan discussed with: Patient My Orders My Orders Orders - CLAUDETTE JOHNSON MD Procedure Category Date Status Time Lactated Ringer's PHA 08/21/24 In Process 18:45 CLAUDETTE JOHNSON MD Aug 22, 2024 11:57
[2024-08-22 14:34] LABS: Creatinine, Urine 58.91 mg/dL (30.0-125.0)
--- NOTE | 2024-08-22 17:24 | DVHINCON2 ---
Date of service: Aug 22, 2024 Referring Physician Ranjith Cortes Reason for Consultation urinary retention,renal failure History of Present Illness hx of progressive BPH currently on self cath 4 times or more daily; pt has discussed turp with his urologist Belinda Melendez; admitted with renal failure,severe UTI now garcia placed Past Medical History reviewed Past Surgical History reviewed Family History: FH: rheumatoid arthritis G8 MOTHER Gout G8 MOTHER Allergies: Coded Allergies: Erythromycin (Verified Allergy, Unknown, 12/15/21) Home Meds Reported Medications Tamsulosin Hcl (Tamsulosin Hcl) 0.4 Mg Cap, 0.4 MG PO HS, MG 08/22/24 Current Medications Current Medications Medications (Trade) Dose Ordered Sig/Praveena Route PRN Reason Start Time Stop Time Status Last Admin Ceftriaxone Sodium 50 ml @ 100 mls/hr DAILY IV 08/22/24 10:00 08/22/24 09:22 Sodium Chloride (Saline Lock Ns) 10 ml Q8HR IV 08/21/24 22:00 08/22/24 14:00 Tamsulosin HCl (Flomax) 0.4 mg DAILY PO 08/22/24 10:00 08/22/24 09:21 Lactated Ringer's 1,000 ml @ 75 mls/hr [id number] IV 08/21/24 18:45 08/22/24 08:05 Review of Systems reviewed Vital Signs Vital Signs Date Time Temp Pulse Resp B/P (MAP) Pulse Ox O2 Delivery O2 Flow Rate FiO2 08/22/24 16:36 97.9 63 18 110/71 (84) 99 97.9 08/22/24 08:00 Room Air* 0 21 Physical Exam garcia in place Labs/Diagnostic Data Labs Test 08/22/24 08:00 08/22/24 05:55 08/21/24 09:48 08/21/24 08:43 Range/Units Urine Creatinine 58.91 30.0-125.0 mg/dL Urine Sodium 79 40-220 mmol/L White Blood Count 6.8 4.4-10.8 10^3/uL Red Blood Count 3.88 L 4.5-5.90 10^6/uL Hemoglobin 11.5 L 13.5-17.5 g/dL Hematocrit 33.4 L 41.0-53.0 % Mean Corpuscular Volume 86.2 80.0-100.0 fL Mean Corpuscular Hemoglobin 29.7 28.0-32.0 pg Mean Corpuscular Hemoglobin Concent 34.5 32.0-36.0 g/dL Red Cell Distribution Width 13.4 11.8-14.3 % Platelet Count 251 140-450 10^3/uL Mean Platelet Volume 8.0 6.9-10.8 fL Neutrophils (%) (Auto) 72.7 37.0-80.0 % Lymphocytes (%) (Auto) 20.2 10.0-50.0 % Monocytes (%) (Auto) 5.4 0.0-12.0 % Eosinophils (%) (Auto) 1.3 0.0-7.0 % Basophils (%) (Auto) 0.4 0.0-2.0 % Neutrophils # (Auto) 5.0 1.6-8.6 10 ^3/uL Lymphocytes # (Auto) 1.4 0.4-5.4 10 ^3/uL Monocytes # (Auto) 0.4 0-1.3 10 ^3/uL Eosinophils # (Auto) 0.1 0-0.8 10 ^3/uL Basophils # (Auto) 0 0-0.2 10 ^3/uL Nucleated Red Blood Cells 0.0 % Sodium Level 138 136-145 mmol/L Potassium Level 4.1 3.5-5.1 mmol/L Chloride Level 105 98-107 mmol/L Carbon Dioxide Level 26 20-31 mmol/L Anion Gap 7 5-15 Blood Urea Nitrogen 25 H 9-23 mg/dL Creatinine 2.51 H 0.700-1.30 mg/dL Glomerular Filtration Rate Calc 28 >90 mL/min BUN/Creatinine Ratio 10.0 10.0-20.0 Serum Glucose 86 74-106 mg/dL Calcium Level 9.7 8.7-10.4 mg/dL Total Bilirubin 1.0 0.2-1.0 mg/dL Aspartate Amino Transferase (AST) 11 L 13-40 U/L Alanine Aminotransferase (ALT) < 9 7-40 U/L Alkaline Phosphatase 52 46-116 U/L Total Protein 6.9 5.7-8.2 g/dL Albumin 4.0 3.2-4.8 g/dL Hepatitis B Surface Antigen Negative Negative Hepatitis C Antibody Negative Negative Troponin I High Sensitivity 3 L </=54 ng/L Prothrombin Time 10.7 9.3-11.8 sec Prothrombin Time INR 1.01 0.9-1.15 Activated Partial Thromboplast Time 28.5 24.5-34.5 SEC Lactic Acid Level 0.9 0.4-2.0 mmol/L Magnesium Level 2.0 1.6-2.6 mg/dL Lipase 43 12-53 U/L Plasma/Serum Blood Alcohol < 3.0 <10 mg/dL Test 08/21/24 08:00 Range/Units Urine Color Colorless Yellow Urine Clarity Turbid H Clear Urine pH 6.5 5.0-9.0 Urine Specific [place] 1.008 1.001-1.035 Urine Protein Trace H Negative Urine Ketones Negative Negative Urine Blood 2+ H Negative /uL Urine Nitrite 2+ H Negative Urine Bilirubin Negative Negative Urine Urobilinogen Normal Negative mg/dL Urine Leukocyte Esterase 3+ Negative /uL Urine RBC 4 0 - 3 /hpf Urine Microscopic WBC 182 H 0-3 /HPF Urine Squamous Epithelial Cells Few <5 /hpf Urine Bacteria None seen None Seen /hpf Urine Glucose Normal Normal mg/dL Urine Opiates Screen Neg NEGATIVE Urine Fentanyl Screen Neg NEGATIVE Urine Barbiturates Screen Neg NEGATIVE Urine Phencyclidine Screen Neg NEGATIVE Urine Amphetamines Screen Neg NEGATIVE Urine Benzodiazepines Screen Neg NEGATIVE Urine Cocaine Screen Neg NEGATIVE Urine Cannabinoids Screen Neg NEGATIVE Microbiology Date/Time Source Procedure Growth Status 08/21/24 15:10 Blood Blood Culture - Preliminary NO GROWTH AFTER 24 HOURS OF INCUBATION. Resulted Assessment acute renal failure with bilateral hydroureteronephrosis,garcia in place Plan/Recommendation pt to follow through and see his urologist about TURP Plan discussed with: Patient NATALIE NOLASCO MD Aug 22, 2024 17:24
[2024-08-23 05:00] VITALS: BP 128/75; PULSE 59; RESP 18; TEMP 97.8; O2SAT 96
[2024-08-23 06:01] LABS: Basophils # (auto) 0 10 ^3/uL (0-0.2); Basophils % (auto) 0.5 % (0.0-2.0); Eosinophils # (auto) 0.2 10 ^3/uL (0-0.8); Eosinophils % (auto) 3.2 % (0.0-7.0); Hemoglobin 12.5 g/dL (13.5-17.5); Lymphocytes # (auto) 1.7 10 ^3/uL (0.4-5.4); Lymphocytes % (auto) 26.2 % (10.0-50.0); Mean Corpuscular Hemoglobin 29.8 pg (28.0-32.0); Mean Corpuscular Hgb Conc. 34.6 g/dL (32.0-36.0); Monocytes # (auto) 0.4 10 ^3/uL (0-1.3); Monocytes % (auto) 7.1 % (0.0-12.0); Nucleated Red Blood Cells % 0.1 %; Platelet Count (auto) 241 10^3/uL (140-450); Red Blood Cells 4.19 10^6/uL (4.5-5.90); Red Cell Distribution Width 13.3 % (11.8-14.3); White Blood Cell 6.3 10^3/uL (4.4-10.8)
[2024-08-23 06:03] LABS: Albumin 4.1 g/dL (3.2-4.8); Alkaline Phosphatase 52 U/L (46-116); Anion Gap 9 (5-15); BUN/Creatinine Ratio 10.7 (10.0-20.0); Bilirubin, Total 0.9 mg/dL (0.2-1.0); Calcium 9.8 mg/dL (8.7-10.4); Carbon Dioxide 25 mmol/L (20-31); Chloride 106 mmol/L (98-107); Glucose 90 mg/dL (74-106); Potassium 4.3 mmol/L (3.5-5.1); Sodium 140 mmol/L (136-145)
[2024-08-23 06:04] LABS: Total Protein 7.1 g/dL (5.7-8.2)
[2024-08-23 06:25] LABS: Alanine Aminotransferase < 9 U/L (7-40); Aspartate Aminotransferase 11 U/L (13-40); Blood Urea Nitrogen 26 mg/dL (9-23)
[2024-08-23 09:00] VITALS: BP 134/75; PULSE 74; RESP 18; TEMP 97.9; O2SAT 100
[2024-08-23] MEDS ORDERED: TRAM-626 PO (11:31)
[2024-08-23] MEDS ORDERED: CIPR-173 PO (11:31)
[2024-08-23] MEDS ORDERED: TAMS-35 PO (11:31)
--- NOTE | 2024-08-23 11:34 | DVHPN2 ---
Reviewed: Care Plan, H&P, Labs, Medications, Previous Orders, Radiology Changes from previous H/P or p: No Changes Objective Vitals Vital Signs Date Time Temp Pulse Resp B/P (MAP) Pulse Ox O2 Delivery O2 Flow Rate FiO2 08/23/24 09:00 97.9 74 18 134/75 (94) 100 97.9 08/23/24 08:00 Room Air* 0 21 Intake/Output Intake and Output 08/23/24 06:59 Intake Total 2470 ml Output Total 2200 ml Balance 270 ml Intake Oral 1420 ml IV Total 1050 ml Output Urine Total 2200 ml Medications Current Medications Medications Dose Ordered Sig/Praveena Route Start Time Stop Time Status Last Admin Dose Admin Ceftriaxone Sodium 50 ml @ 100 mls/hr DAILY IV 08/22/24 10:00 08/23/24 09:10 100 MLS/HR Sodium Chloride 10 ml Q8HR IV 08/21/24 22:00 08/23/24 05:07 10 ML Acetaminophen 650 mg Q6HP PRN PO 08/21/24 14:30 Acetaminophen/ Hydrocodone Bitart 1 tab Q4HP PRN PO 08/21/24 14:30 Hydromorphone HCl 0.5 mg Q4HP PRN IV 08/21/24 14:30 Ondansetron HCl 4 mg Q4HP PRN IV 08/21/24 14:30 Tamsulosin HCl 0.4 mg DAILY PO 08/22/24 10:00 08/23/24 09:10 0.4 MG Lactated Ringer's 1,000 ml @ 75 mls/hr [id number] IV 08/21/24 18:45 08/22/24 21:41 75 MLS/HR Laboratory Results Laboratory Tests 08/23/24 05:11 Chemistry Test 08/23/24 05:11 Albumin 4.1 g/dL (3.2-4.8) Calcium Level 9.8 mg/dL (8.7-10.4) Total Protein 7.1 g/dL (5.7-8.2) LFT Test 08/23/24 05:11 Alanine Aminotransferase (ALT) < 9 U/L (7-40) Alkaline Phosphatase 52 U/L (46-116) Aspartate Amino Transferase (AST) 11 U/L (13-40) L Total Bilirubin 0.9 mg/dL (0.2-1.0) Urinalysis Test 08/21/24 08:00 08/22/24 08:00 Urine Color Colorless (Yellow) Urine Clarity Turbid (Clear) H Urine pH 6.5 (5.0-9.0) Urine Specific [place] 1.008 (1.001-1.035) Urine Protein Trace (Negative) H Urine Ketones Negative (Negative) Urine Blood 2+ /uL (Negative) H Urine Nitrite 2+ (Negative) H Urine Bilirubin Negative (Negative) Urine Urobilinogen Normal mg/dL (Negative) Urine Leukocyte Esterase 3+ /uL (Negative) Urine RBC 4 /hpf (0 - 3) Urine Microscopic WBC 182 /HPF (0-3) H Urine Squamous Epithelial Cells Few /hpf (<5) Urine Bacteria None seen /hpf (None Seen) Urine Glucose Normal mg/dL (Normal) Urine Creatinine 58.91 mg/dL (30.0-125.0) Urine Sodium 79 mmol/L (40-220) Microbiology Microbiology Date/Time Source Procedure Growth Status 08/21/24 15:10 Blood Blood Culture - Preliminary NO GROWTH AFTER 24 HOURS OF INCUBATION. Resulted Labs and/or images reviewed: Labs reviewed by me, Image(s) reviewed by me Assessment/Plan Assessment/Plan Acute obstructive uropathy: [place] consult for Urology Dr. Waite, advised outpatient follow up with his urologist for TURP Bilateral hydroureteronephrosis secondary to enlarged prostate Enlarged prostate, patient does self catheterization at home Sepsis secondary to urinary tract infection: Blood cultures two, urine cultures pending, treated with Rocephin MAKSIM: Consult by Dr Ayala appreciated CKD 3 Plan discussed with: Patient My Orders Orders - JUSTINO RAMIREZ MD Procedure Category Date Status Time Communication Order ORDERS 08/22/24 Transmitted 11:46 * Urology Consult CONS 08/22/24 Transmitted 11:47 Date of Service: Aug 23, 2024 Billing Provider: JUSTINO RAMIREZ MD Common Visit Codes: [id number] INP/OBS CARE(HIGH) JUSTINO RAMIREZ MD Aug 23, 2024 11:34
--- NOTE | 2024-08-23 11:38 | DVHDS2 ---
Discharge Summary Date of Admission Aug 21, 2024 at 14:22 Date of Discharge: Aug 23, 2024 Admitting Diagnosis Urinary obstruction Wounds: None Labs/Diagnostic Data: Laboratory Results Test 08/23/24 05:11 08/22/24 08:00 08/22/24 05:55 08/21/24 09:48 White Blood Count 6.3 10^3/uL (4.4-10.8) Red Blood Count 4.19 10^6/uL (4.5-5.90) Hemoglobin 12.5 g/dL (13.5-17.5) Hematocrit 36.0 % (41.0-53.0) Mean Corpuscular Volume 86.0 fL (80.0-100.0) Mean Corpuscular Hemoglobin 29.8 pg (28.0-32.0) Mean Corpuscular Hemoglobin Concent 34.6 g/dL (32.0-36.0) Red Cell Distribution Width 13.3 % (11.8-14.3) Platelet Count 241 10^3/uL (140-450) Mean Platelet Volume 7.6 fL (6.9-10.8) Neutrophils (%) (Auto) 63.0 % (37.0-80.0) Lymphocytes (%) (Auto) 26.2 % (10.0-50.0) Monocytes (%) (Auto) 7.1 % (0.0-12.0) Eosinophils (%) (Auto) 3.2 % (0.0-7.0) Basophils (%) (Auto) 0.5 % (0.0-2.0) Neutrophils # (Auto) 4.0 10 ^3/uL (1.6-8.6) Lymphocytes # (Auto) 1.7 10 ^3/uL (0.4-5.4) Monocytes # (Auto) 0.4 10 ^3/uL (0-1.3) Eosinophils # (Auto) 0.2 10 ^3/uL (0-0.8) Basophils # (Auto) 0 10 ^3/uL (0-0.2) Nucleated Red Blood Cells 0.1 % Sodium Level 140 mmol/L (136-145) Potassium Level 4.3 mmol/L (3.5-5.1) Chloride Level 106 mmol/L (98-107) Carbon Dioxide Level 25 mmol/L (20-31) Anion Gap 9 (5-15) Blood Urea Nitrogen 26 mg/dL (9-23) Creatinine 2.44 mg/dL (0.700-1.30) Glomerular Filtration Rate Calc 29 mL/min (>90) BUN/Creatinine Ratio 10.7 (10.0-20.0) Serum Glucose 90 mg/dL (74-106) Calcium Level 9.8 mg/dL (8.7-10.4) Total Bilirubin 0.9 mg/dL (0.2-1.0) Aspartate Amino Transferase (AST) 11 U/L (13-40) Alanine Aminotransferase (ALT) < 9 U/L (7-40) Alkaline Phosphatase 52 U/L (46-116) Total Protein 7.1 g/dL (5.7-8.2) Albumin 4.1 g/dL (3.2-4.8) Urine Creatinine 58.91 mg/dL (30.0-125.0) Urine Sodium 79 mmol/L (40-220) Hepatitis B Surface Antigen Negative (Negative) Hepatitis C Antibody Negative (Negative) Troponin I High Sensitivity 3 ng/L (</=54) Test 08/21/24 08:43 08/21/24 08:00 Prothrombin Time 10.7 sec (9.3-11.8) Prothrombin Time INR 1.01 (0.9-1.15) Activated Partial Thromboplast Time 28.5 SEC (24.5-34.5) Lactic Acid Level 0.9 mmol/L (0.4-2.0) Magnesium Level 2.0 mg/dL (1.6-2.6) Lipase 43 U/L (12-53) Plasma/Serum Blood Alcohol < 3.0 mg/dL (<10) Urine Color Colorless (Yellow) Urine Clarity Turbid (Clear) Urine pH 6.5 (5.0-9.0) Urine Specific Speculator 1.008 (1.001-1.035) Urine Protein Trace (Negative) Urine Ketones Negative (Negative) Urine Blood 2+ /uL (Negative) Urine Nitrite 2+ (Negative) Urine Bilirubin Negative (Negative) Urine Urobilinogen Normal mg/dL (Negative) Urine Leukocyte Esterase 3+ /uL (Negative) Urine RBC 4 /hpf (0 - 3) Urine Microscopic WBC 182 /HPF (0-3) Urine Squamous Epithelial Cells Few /hpf (<5) Urine Bacteria None seen /hpf (None Seen) Urine Glucose Normal mg/dL (Normal) Urine Opiates Screen Neg (NEGATIVE) Urine Fentanyl Screen Neg (NEGATIVE) Urine Barbiturates Screen Neg (NEGATIVE) Urine Phencyclidine Screen Neg (NEGATIVE) Urine Amphetamines Screen Neg (NEGATIVE) Urine Benzodiazepines Screen Neg (NEGATIVE) Urine Cocaine Screen Neg (NEGATIVE) Urine Cannabinoids Screen Neg (NEGATIVE) Other Laboratory Tests 08/23/24 05:11 Brief Hx & Hospital Course: 5-year-old male with a history of enlarged prostate doing self catheterization at home came in for urinary obstruction. The patient had Hayden inserted and urine was drained. CT abdomen pelvis without contrast showed bilateral hydroureteronephrosis secondary to enlarged prostate. Seen by Urology Dr. Waite advised outpatient follow up with his urologist for prostate surgery. Acute kidney injury resolved seen by Nephrology UTI treated with Rocephin blood cultures negative urine cultures pending patient requesting to be discharged home. Discharged home on Cipro tramadol and Flomax Consults/Reason for consult Urology Dr. Waite Nephrology Dr. Ayala Operations or Procedures CT abdomen pelvis without contrast Condition at Discharge: Fair Final Diagnosis/Problems List Acute obstructive uropathy: Hayden consult for Urology Dr. Waite, advised outpatient follow up with his urologist for TURP Bilateral hydroureteronephrosis secondary to enlarged prostate Enlarged prostate, patient does self catheterization at home Sepsis secondary to urinary tract infection: Blood cultures two, urine cultures pending, treated with Rocephin MAKSIM: Consult by Dr Ayala appreciated CKD 3 Discharge Disposition: Home Discharge Instruct/Medications Diet: Regular Activity: Light activity Follow Up/Referral: Follow up with your urologist for prostate surgery Medications: Cipro Tramadol Flomax Transmitted to pharmacy 35 (Time taken for Discharge summary 35 minutes) Discharge Statement: "Patient was advised to return to the ER or call 911 if any headaches, dizziness, shortness of breath, chest pain, abdominal pain, bleeding, fevers, or worsening of medical condition. Patient was counseled about treatment plan, medications, possible side effects, patientverbalized understanding. All questions were answered to the best of my ability. This discharge took greater then 30 minutes in planning, reviewing documentation, counseling the patient, and discussing with other team members." ASSESSMENT ASSESSMENT Hospital Course Improved Assessment Acute obstructive uropathy: Hayden consult for Urology Dr. Waite, advised outpatient follow up with his urologist for TURP Bilateral hydroureteronephrosis secondary to enlarged prostate Enlarged prostate, patient does self catheterization at home Sepsis secondary to urinary tract infection: Blood cultures two, urine cultures pending, treated with Rocephin MAKSIM: Consult by Dr Ayala appreciated CKD 3 Date of Service: Aug 23, 2024 Billing Provider: JUSTINO RAMIREZ MD Common Visit Codes: 55916-SQV/OBS DISCH DAY >30min JUSTINO RAMIREZ MD Aug 23, 2024 11:38
[2024-08-23 12:01] VITALS: BP 134/75; PULSE 74; RESP 18; TEMP 97.9; O2SAT 100
== END 2024-08-23 14:00 | disposition home or self-care (01) | DRG 690 ==
LOC: ER 08:02 → OVERFLOW 14:22 → WEST WING 08-22 02:12
PROVIDERS: ADMIT Internal Medicine; ATTEND Internal Medicine
DX: N13.6 Pyonephrosis (principal); N13.8 Other obstructive and reflux uropathy; N17.9 Acute kidney failure, unspecified; N40.1 Benign prostatic hyperplasia with lower urinary tract symptoms; N18.30 Chronic kidney disease, stage 3 unspecified; G89.29 Other chronic pain; Z88.1 Allergy status to other antibiotic agents; Z87.442 Personal history of urinary calculi; Z82.61 Family history of arthritis
CPT/HCPCS: 36415; 74176; 76775; 80053; 80307; 80320; 81001; 82570; 83605; 83690; 83735; 84300; 84484; 85025; 85610; 85730; 86803; 87040; 87086; 87340; 96365; G0378; J2543

== ENCOUNTER 2024-09-07 16:13 | Emergency (ER) | payer OTHER ==
[~2024-09-07] VITALS: Ht 162.6 cm; Wt 60.5 kg
[~2024-09-07 16:13] MED LIST: CIPR-173 PO; TAMS-35 PO; TAMS0.4C39 PO; TRAM-626 PO
[2024-09-07 16:45] VITALS: BP 122/85; PULSE 100; RESP 19; O2SAT 97
--- NOTE | 2024-09-07 17:15 | ED.PDOC ---
History of Present Illness HPI Comments Patient here for Hayden catheter removal. Patient states he was called by the urologist and advised that he was appointment has been moved until September. States Hayden was placed last week Saturday preemptively for a procedure the falling Saturday. States the procedure was moved. States he was a straight cath at home for urination. Chief Complaint: Tube Replacement Time Seen by MD: 16:59 Primary Care Provider: erika Reviewed Notes: Nurses Notes Allergies: Coded Allergies: Erythromycin (Verified Allergy, Unknown, 12/15/21) Sulfa Antibiotics (Verified Allergy, Unknown, 09/07/24) Home Meds Active Scripts Tramadol HCl (Tramadol HCl) 50 Mg Tab, 50 MG PO QID PRN, #30 TAB Prov:JUSTINO RAMIREZ MD 08/23/24 Tamsulosin Hcl (Flomax) 0.4 Mg Cap, 1 CAP PO DAILY, #30 CAP 11 Refills Prov:JUSTINO RAMIREZ MD 08/23/24 Ciprofloxacin Hcl (Cipro) 500 Mg Tab, 1 TAB PO BID, #20 TAB Prov:JUSTINO RAMIREZ MD 08/23/24 Reported Medications Tamsulosin Hcl (Tamsulosin Hcl) 0.4 Mg Cap, 0.4 MG PO HS, MG 08/22/24 Information Source: Patient Mode of Arrival: Ambulatory Past Medical History PAST MEDICAL HISTORY: Kidney Stones Surgical History: Denies all surgeries Family History Family History: Reviewed,noncontributory to illness Social History Smoker: Non-Smoker Alcohol: Occasionally Drugs: Denies Drug Use Lives In: Home Constitutional: denies: chills, diaphoresis, fatigue, fever, malaise, sweats, weakness, others EENTM: denies: blurred vision, double vision, ear bleeding, ear discharge, ear drainage, ear pain, ear ringing, eye pain, eye redness, hearing loss, mouth pain, mouth swelling, nasal discharge, nose bleeding, nose congestion, nose pain, photophobia, tearing, throat pain, throat swelling, voice changes, others Respiratory: denies: cough, hemoptysis, orthopnea, SOB at rest, shortness of breath, SOB with excertion, stridor, wheezing, others Cardiovascular: denies: chest pain, dizzy spells, diaphoresis, Dyspnea on exertion, edema, irregular heart beat, left arm pain, lightheadedness, palpitations, PND, syncope, others Gastrointestinal: denies: abdomen distended, abdominal pain, blood streaked bowels, constipated, diarrhea, dysphagia, difficulty swallowing, hematemesis, melena, nausea, poor appetite, poor fluid intake, rectal bleeding, rectal pain, vomiting, others Genitourinary: denies: burning, dysuria, flank pain, frequency, hematuria, incontinence, penile discharge, penile sore, pain, testicle pain, testicle swelling, urgency, others Neurological: denies: dizziness, fainting, headache, left sided numbness, left sided weakness, numbness, paresthesia, pre-existing deficit, right sided numbness, right sided weakness, seizure, speech problems, tingling, tremors, weakness, others Musculoskeletal: denies: back pain, gout, joint pain, joint swelling, muscle pa in, muscle stiffness, neck pain, others Integumetry: denies: bruises, change in color, change in hair/nails, dryness, laceration, lesions, lumps, rash, wounds, others Allergic/Immunocompromised: denies: Difficulty Healing, Frequent Infections, Hives, Itching, others Hematologic/Lymphatic: denies: anemia, blood clots, easy bleeding, easy bruising, swollen glands, others Physical Exam General Appearance: No Apparent Distress, Normal HEENT: Normal ENT Inspection, Pharynx Normal, TMs Normal Neck: Full Range of Motion, Non-Tender, Normal, Normal Inspection Respiratory: Chest Non-Tender, Lungs Clear, No Accessory Muscle Use, No Respiratory Distress, Normal Breath Sounds Cardiovascular: No Edema, No JVD, No Murmur, No Gallop, Normal Peripheral Pulses, Regular Rate/Rhythm Breast Exam: Deferred Gastrointestinal: No Organomegaly, Non Tender, No Pulsatile Mass, Normal Bowel Sounds, Soft Genitalia: Deferred Pelvic: Deferred Rectal: Deferred Extremities: No calf tenderness, Normal capillary refill, Normal inspection, Normal range of motion, Non-tender, No pedal edema Musculoskeletal : Apperance: Normal Neurologic: Alert, radiotelegrapher II-XII nml as Tested, No Motor Deficits, Normal Affect, Normal Mood, No Sensory Deficits Cerebellar Function: Normal Reflexes: Normal Skin: Dry, Normal Color, Warm Lymphatic: No Adenopathy Was a procedure done? Was a procedure done?: No Differential Dx Considerations may include: Hayden catheter complication X-Ray, Labs, Meds, VS Vital Signs Date Time Temp Pulse Resp B/P (MAP) Pulse Ox O2 Delivery O2 Flow Rate FiO2 09/07/24 16:45 98.3 100 19 122/85 (97) 97 X-Ray, Labs, Meds, VS Comment Hayden catheter removed without complications, Hayden catheter intact. Time of 1ST Reevaluation: 17:15 Reevaluation 1ST: Improved Patient Education/Counseling: Diagnosis, Treatment, Need For Follow Up (Follow up with the Urology has been scheduled) Family Education/Counseling: Diagnosis, Treatment Departure 1 Departure Time of Disposition: 17:15 Impression: Primary Impression: Encounter for Hayden catheter removal Disposition: 01 HOME / SELF CARE / HOMELESS Condition: Fair Discharged With: Self Critical Care Note Critical Care Time?: No Stability Stability form required: No Heart Score Heart Score: Heart Score Response (Comments) Value History N/A 0 EKG N/A 0 Age N/A 0 Risk Factors N/A 0 Troponin N/A 0 Total 0 REMY GONZALEZ Sep 07, 2024 17:15
== END 2024-09-07 18:58 | disposition home or self-care (01) ==
LOC: ER 16:13
DX: T83.098D Other mechanical complication of other urinary catheter, subsequent encounter (principal); Z88.1 Allergy status to other antibiotic agents; Z88.2 Allergy status to sulfonamides; Z79.899 Other long term (current) drug therapy

== ENCOUNTER → 2025-03-09 | Emergency (ER) | payer OTHER ==
[~2025-03-09] VITALS: Ht 162.6 cm; Wt 59.0 kg
[2025-03-09 11:50] VITALS: BP 146/87; PULSE 74; RESP 16; TEMP 98.1; O2SAT 98
== END | disposition left against medical advice (07) ==
LOC: ER 11:48
DX: R82.998 Other abnormal findings in urine (principal); Z53.21 Procedure and treatment not carried out due to patient leaving prior to being seen by health care provider